=== PATIENT | male | born 1950 | race Caucasian/White ===

== ENCOUNTER 2018-06-07 08:59 | Outpatient (CLI) | payer MEDICARE, BC | END 2018-06-07 09:00 | disposition home or self-care (01) | LOC: BICULT 08:59 | PROVIDERS: ATTEND Internal Medicine Gastroenterology | DX: R74.8 Abnormal levels of other serum enzymes (principal); R19.7 Diarrhea, unspecified; Z86.010 Personal history of colon polyps | CPT/HCPCS: 76705 ==

== ENCOUNTER 2018-09-07 03:24 | Observation (INO) | payer MEDICARE, BC ==
[2018-09-07 04:01] LABS: #Basophils 0.1 thou/uL (0.0-0.2); #Eosinphils 0.4 thou/uL (0.0-0.7); #Lymphocytes 2.1 thou/uL (1.20-3.40); #Monocytes 0.5 thou/uL (0.11-0.59); #Neutrophils 2.9 thou/uL (1.40-6.50); %Basophils 1.7 % (0.0-1.0); %Lymphocytes 35.1 % (21.0-51.0); %Monocytes 8.8 % (0.0-10.0); %Neutrophils 48.4 % (42.0-75.0); Mean Corpuscular HGB CONC 33.2 g/dL (32.0-36.0); Mean Corpuscular Hemoglobin 31.4 pg (27.0-31.0); Mean Corpuscular Volume 94.5 fL (78.0-98.0); Mean Platelet Volume 7.4 fL (7.4-10.4); Platelet Count 263 thou/uL (130-400); RBC Distribution Width 11.9 % (11.5-14.5); Red Blood Cell (RBC) Count 4.46 mill/uL (4.70-6.10)
[2018-09-07 04:24] LABS: ALT (SGPT) 57 U/L (8-55); AST (SGOT) 28 U/L (5-34); Albumin 4.2 g/dL (3.4-4.8); Alkaline Phosphatase 87 U/L (40-150); Anion Gap 11 mmol/L (10-20); BUN (Urea Nitrogen) 24 mg/dL (8.4-25.7); Bilirubin, Total 0.5 mg/dL (0.2-1.2); CK (CPK) 27 U/L (30-200); Calc. Creatinine Clearance 0 mL/min (70-130); Carbon Dioxide 25 mmol/L (23-31); Chloride 106 mmol/L (98-107); Estimated GFR-MDRD Greater than 90; Globulin 2.5 g/dL (2.4-3.5); Glucose 112 mg/dL (80-115); Lipase 18 U/L (8-78); Potassium 3.6 mmol/L (3.5-5.1); Protein, Total 6.7 g/dL (5.8-8.1); Sodium 138 mmol/L (136-145)
[2018-09-07 04:27] LABS: CKMB 0.3 ng/mL (0-6.6); Troponin I Less than 0.010 ng/mL (< 0.028)
[2018-09-07 06:38] VITALS: BMI 24.0
[2018-09-07] MEDS ORDERED: Ondansetron ODT 4 MG TAB SL PRN (06:40)
[2018-09-07] MEDS ORDERED: Ondansetron PF 4 MG/2 ML Vial IVP PRN (06:40)
[2018-09-07] MEDS ORDERED: Acetaminophen 325 MG TAB PO PRN (06:40)
[2018-09-07 07:34] LABS: Troponin I Less than 0.010 ng/mL (< 0.028)
--- NOTE | 2018-09-07 07:59 | CT ---
PRELIMINARY REPORT/[facility]/EMERGENTY AFTER-HOURS PROCEDURE CT Angiography Chest With Intravenous Contrast EXAM DATE/TIME: 09/07/2018 4:32 AM CLINICAL HISTORY: 68 years old, male; Signs and symptoms; Other: Chest pain; Patient HX: [id number] presents to ed for chest p ain. PT reports recent left shoulder surgery and reports he has a blood clot in his left arm. PT repo rts some left arm discomfort earlier tonight and reports taking tylenol 3 with codeine. PT then repor ts chest pain with radiation to his back that woke him up from sleep around 1: 45 this morning. PT re ports receiving 2 nitro from ems and reports his pain has completely resolved. PT denies any lower ex tremity swelling or dyspnea on exertion. PT reports he is on Eliquis TECHNIQUE: Axial computed tomographic angiography images of the chest with intravenous contrast using CT angiogr aphy protocol. MIP reconstructed images were created and reviewed. COMPARISON: No relevant prior studies available. FINDINGS: Pulmonary arteries: See Great Vessels Off Aortic Arch Finding. Aorta: Normal. No aortic aneurysm. No aortic dissection. Great vessels off aortic arch: No dissection. No visualized embolism as characterized to the most pro ximal segmental level. Other arteries: The left vertebral artery originates off of the aortic arch. This is a normal variant . Lungs: apical fibrosis. No focal infiltrate. Pleural space: Normal. No pneumothorax. No pleural effusion. Heart: No pericardial effusion Bones/joints: The thoracic inlet is unremarkable. Soft tissues: Unremarkable. Lymph nodes: Nonspecific lymph nodes within the mediastinum Calcified lymph node right IMPRESSION: 1. No dissection. No visualized embolism as characterized to the most proximal segmental level. Consi jolene alternative form of imaging given the limitations of this exam. 2. apical fibrosis. No focal infiltrate. Thank you for allowing us to participate in the care of your patient. Dictated and Authenticated by: Cosme Myles MD 09/07/2018 5:17 AM Central Time ([place] & [place]) FINAL REPORT CT PULMONARY ANGIOGRAM WITH IV CONTRAST AND 3D POSTPROCESSING: I agree with the preliminary report given by Dr. Froylan Weller of [facility]. POS: [facility]
--- NOTE | 2018-09-07 08:02 | RAD ---
CHEST 1 VIEW: Date: 09/07/18 HISTORY: Dyspnea. COMPARISON: 10/15/18. FINDINGS: Cardiac silhouette is magnified by projection. Pulmonary vasculature is unremarkable. Mediastinum is midline. No lobar consolidation or evidence of pneumothorax. plaster mixer leads overlie the chest. IMPRESSION: No active cardiopulmonary abnormalities are demonstrated. POS: [facility]
[2018-09-07] MEDS ORDERED: traMADol HCl 50 MG TAB PO PRN (09:05)
[2018-09-07 10:41] LABS: Troponin I Less than 0.010 ng/mL (< 0.028)
--- NOTE | 2018-09-07 13:33 | HP ---
DATE OF ADMISSION: 09/07/2018 PRIMARY CARE PHYSICIAN: Dr. Fabby Pandya CHIEF COMPLAINT: Chest pain. HISTORY OF PRESENT ILLNESS: Mr. Lockett is a pleasant 68-year-old male with a past medical history of recent left shoulder rotator cuff repair back in June, newly diagnosed left upper extremity blo od clot on Eliqu, hyperlipidemia, hypertension and essential tremor. He had presented to [facility] via EMS early this morning due to symptoms of chest pain, he was given 2 nitro fr om EMS and his symptoms of chest pain resolved. He had denied any symptoms of shortness of breath, n ausea, vomiting, headache, blurred vision or dizziness. He states symptoms came on suddenly late las t night. He also has some pain down the left arm and left shoulder that he states has been on and of f since his surgery. For his pain, he usually takes Tylenol #3 with codeine. He had been undergoing physical therapy from recent shoulder surgery; however, he has stopped since diagnosis of blood clot this week on Tuesday. He states he was discharged on Eliquis yesterday prior to the symptoms develo ping. He denies any nausea, vomiting, lower extremity swelling or edema. He was admitted to the [facility] or on telemetry under observation status, he was seen and examined with family and denied any complai nts at this time, he has no further symptoms of chest pain, chest tightness, palpitations, shortness of breath or abdominal pain. He has complaints of left shoulder pain radiating down left arm. Denie s any weakness. PAST MEDICAL HISTORY: Left upper extremity DVT, hypertension, hyperlipidemia, essential tremor. PAST SURGICAL HISTORY: Hernia repair over 40 years ago, recent left shoulder rotator cuff repair on 07/05/2018. PSYCHIATRIC HISTORY: Denies any psychiatric history. SOCIAL HISTORY: Denies any alcohol, drug or smoking. ALLERGIES: No known drug allergies. CURRENT HOME MEDICATIONS: 1. Eliquis 10 mg p.o. b.i.d. 2. Propranolol 80 mg p.o. daily. 3. Pravastatin 20 mg p.o. at bedtime. 4. Tramadol HCL 50 mg p.o. q.i.d. p.r.n. pain. 5. Primidone 250 mg p.o. b.i.d. 6. Topiramate 100 mg p.o. b.i.d. 7. Acetaminophen/codeine 300 mg/30 mg p.o. q.6h. p.r.n. pain. REVIEW OF SYSTEMS: CONSTITUTIONAL: Denies any fever, chills, weight loss or weight gain. EYES: Denies any eye pain, eye discharge or vision changes. ENT: Denies any runny nose, bloody nose or sore throat. CARDIOVASCULAR: He did have some chest pain this morning that had radiated to his back; however, has since resolved. Denies any palpitations, edema, or dyspnea on exertion. RESPIRATORY: Denies any shortness of breath, cough or wheezing. GASTROINTESTINAL: Denies any abdominal pain, nausea, vomiting, constipation, or diarrhea. GENITOURINARY: Denies any dysuria or hematuria. MUSCULOSKELETAL: Denies any back pain, denies fall or injury. He does report some left shoulder payton n and left arm pain from recent surgery and DVT in left upper extremity, denies any weakness or swell ing. SKIN: Denies rash or lesion, does report surgical scars of the left shoulder and mild bruising from cupping from physical therapy. NEUROLOGIC: Denies any dizziness, lightheadedness, headache or weakness. PSYCHIATRIC: Denies any depression, anxiety, homicidal or suicidal ideation. PHYSICAL EXAMINATION: VITAL SIGNS: BP 106/54, pulse 56, respirations 20, temperature 97.4 degrees Fahrenheit, O2 saturatio n 96% on room air. GENERAL: The patient is alert and oriented x3. Mild acute distress noted due to left shoulder and l eft arm pain. HEAD: Atraumatic, normocephalic. EYES: Pupils equal, round, and reactive to light. Extraocular muscles intact. ENT: Hearing is intact to normal conversation. Nose is clear. No bleeding or discharge. Pharynx i s unremarkable. Uvula is midline, moist mucous membranes. NECK: Supple, nontender, no JVD, no bruit noted. CARDIAC: Regular rate and rhythm. Positive S1, S2. No murmurs or rubs. LUNGS: Clear to auscultation bilaterally, no wheezes, no rhonchi, no rales. ABDOMEN: Soft, nontender. Normal bowel sounds present. MUSCULOSKELETAL: Strength 5+ both upper and lower extremities bilaterally. Surgical scars noted rig ht shoulder. No edema. Sensation intact. Radial and pedal pulses 2+ bilaterally. NEUROLOGIC: Cranial nerves II-XII intact. Normal speech. No focal deficits noted. SKIN: As above, surgical scarring shoulder noted with mild bruising from recent cupping from [employer]. Skin is warm and dry, skin intact. PSYCHIATRIC: Normal mood and affect. LABORATORY DATA: WBC 6.0, RBC 4.46, hemoglobin 14.0, platelet 263, sodium 138, potassium 3.6, anion gap 11, BUN 24, creatinine 0.83, estimated GFR greater than 90, glucose 112, AST 28, ALT 57, alkaline phosphatase 87. Creatine kinase 27, CK-MB 0.3, troponin less than 0.010 x3. Lipase 18. DIAGNOSTIC IMAGING: Chest x-ray shows no acute cardiopulmonary abnormalities. Chest CTA showed no d issection, no PE noted, no focal infiltrate; however, did show some apical fibrosis. ASSESSMENT AND PLAN: 1. Chest pain, will rule out cardiac causes, serial troponins are unremarkable, less than 0.010 x3. We will check echocardiogram and stress test to rule out cardiac causes. A CT of chest negative for PE at this time. We will monitor the patient closely and continue on home medications including Mari osmar 10 mg p.o. twice daily, simvastatin, propranolol. 2. Deep venous thrombosis, left upper extremity, continue home dose of Eliquis and monitor closely. Continue pain management with home dose of tramadol and Tylenol with codeine. 3. History of rotator cuff repair, left shoulder, as above. Monitor the patient closely and continu e home medications. 4. GI prophylaxis with Pepcid 20 mg b.i.d. 5. Deep venous thrombosis prophylaxis, continue home Eliquis, patient tolerating well. No signs of active bleeding at this time. DISPOSITION: Disposition will be pending the patient's progress and workup for patient's chest pain, further adjustments made pending results.
[2018-09-07] MEDS: Acetaminophen/Codeine 30-300mg Tablet PO PRN ×2 (13:42→20:47)
[2018-09-07] MEDS ORDERED: ADENOSINE 60 MG/20 ML VIAL ONE (13:50)
[2018-09-07] MEDS ORDERED: ISOVUE-370 76%-LOCM 1 ML ONE (13:55)
--- NOTE | 2018-09-07 14:59 | NM ---
CARDIAC SPECT: CLINICAL HISTORY: 68-year-old male with chest pain and dyslipidemia. TECHNIQUE: A myocardial perfusion scan was performed using the single isotope one day protocol with technetium-9 9m sestamibi. 9 mCi were injected intravenously for the rest exam followed by 32 mCi for the stress e xam. Pharmacologic stress with Adenosine was monitored and interpreted by Dr. Rodriguez. FINDINGS: Homogeneous tracer distribution is seen in the myocardial segments on stress and rest images without fixed or reversible defects. GATED SPECT LVEF: 72%. WALL MOTION EXAM: Normal. IMPRESSION: Normal myocardial perfusion scan. POS: [facility]
[2018-09-07] MEDS: Apixaban 5 MG TAB PO SCH (20:45)
[2018-09-07] MEDS: Famotidine 20 MG TAB PO SCH (20:46)
[2018-09-07] MEDS: Primidone 250 MG TAB PO SCH (20:46)
[2018-09-07] MEDS: Topiramate 100 MG TAB PO SCH (20:47)
[2018-09-07] MEDS ORDERED: Simvastatin 5 MG TAB PO SCH (21:00)
[2018-09-08 06:17] LABS: Anion Gap 12 mmol/L (10-20); BUN (Urea Nitrogen) 13 mg/dL (8.4-25.7); Calc. Creatinine Clearance 116 mL/min (70-130); Carbon Dioxide 23 mmol/L (23-31); Chloride 107 mmol/L (98-107); Estimated GFR-MDRD Greater than 90; Potassium 3.8 mmol/L (3.5-5.1); Sodium 138 mmol/L (136-145)
[2018-09-08 06:18] LABS: Calcium 8.9 mg/dL (7.8-10.44); Glucose 89 mg/dL (80-115)
[2018-09-08 06:19] LABS: #Basophils 0.1 thou/uL (0.0-0.2); #Eosinphils 0.3 thou/uL (0.0-0.7); #Lymphocytes 1.7 thou/uL (1.20-3.40); #Monocytes 0.4 thou/uL (0.11-0.59); #Neutrophils 1.6 thou/uL (1.40-6.50); %Basophils 1.9 % (0.0-1.0); %Lymphocytes 41.2 % (21.0-51.0); %Monocytes 10.2 % (0.0-10.0); %Neutrophils 38.6 % (42.0-75.0); Hemoglobin 13.7 g/dL (14.0-18.0); Mean Corpuscular Hemoglobin 31.3 pg (27.0-31.0); Mean Platelet Volume 7.3 fL (7.4-10.4); Platelet Count 242 thou/uL (130-400); RBC Distribution Width 12.1 % (11.5-14.5); Red Blood Cell (RBC) Count 4.36 mill/uL (4.70-6.10); White Blood Cell (WBC) Count 4.2 thou/uL (4.8-10.8)
[2018-09-08] MEDS: Famotidine 20 MG TAB PO SCH (08:38)
[2018-09-08] MEDS: Apixaban 5 MG TAB PO SCH (08:38)
[2018-09-08] MEDS: Topiramate 100 MG TAB PO SCH (08:39)
[2018-09-08] MEDS: Primidone 250 MG TAB PO SCH (08:39)
[2018-09-08] MEDS: Acetaminophen/Codeine 30-300mg Tablet PO PRN (08:40)
[2018-09-08] MEDS ORDERED: Propranolol HCl LA 80 MG CAP PO SCH (09:00)
[2018-09-08 11:35] VITALS: BP 123/57; TEMP 99
--- NOTE | 2018-09-09 01:56 | DIS ---
DATE OF ADMISSION: 09/07/2018 DATE OF DISCHARGE: 09/08/2018 DISCHARGE DIAGNOSES: 1. Chest pain, noncardiac. 2. Deep venous thrombosis, left upper extremity, stable. 3. History of rotator cuff repair, left shoulder, stable. 4. Hypertension, stable. PERTINENT LABORATORY AND DIAGNOSTIC FINDINGS: WBC 4.2, RBC 4.36, hemoglobin 13.7, and platelet count 242. Sodium 138, potassium 3.8, creatinine 0.69, GFR greater than 90, glucose 89, creatine kinase 2 7, CK-MB 0.3, troponin less than 0.010 x3. Lipase 18. Chest x-ray showed no acute cardiopulmonary abnormalities. CTA of chest showed no dissection or PE, however, did show some apical fibrosis, no focal infiltrate noted. PROCEDURES: Echocardiogram showed left ventricular ejection fraction of 60% to 69% with grade I samuel tolic dysfunction. Nuclear medicine cardiac stress test revealed no wall motion abnormalities, sedrick l myocardial perfusion scan. CONSULTATIONS: None. HOSPITAL COURSE: Mr. Lockett is a pleasant 68-year-old male who had presented to [facility] with some complaints of left-sided chest pain, he had recently undergone left shoulder surgery for rotator cuff repair back in June, he was newly diagnosed with left upper extremity D VT and was started on Eliquis the day prior to symptoms starting. His workup in ER included serial t roponins, which were found to be negative, less than 0.010. He had undergone a chest x-ray, which wa s unremarkable and CTA of chest ruled out PE. He was admitted overnight for close monitoring and obs ervation. Stress test and echocardiogram were ordered. The echocardiogram displayed a left ventricu lar ejection fraction of 60%-69% with grade I diastolic dysfunction, cardiac stress test revealed nor mal myocardial perfusion scan. He was seen and examined with several family members at bedside, he h ad no further complaints of chest pain, shortness of breath, or abdominal pain. Serial troponins wer e found to be negative 0.010 x3 and he had no further episodes of chest pain, palpitations, or shortn ess of breath throughout the hospital course. He was instructed to continue his current home medicat ions. His vital signs remained stable during hospital course. He was instructed to continue Eliquis for at least 3 months and that he would need to repeat Doppler as outpatient. He was instructed to follow up with his Orthopedic surgeon and PCP as directed. His symptoms of chest pain were likely no ncardiac and possibly referred pain from his left shoulder. He was deemed medically stable for disch arge home on 09/08/2018. He was only provided with 14 days of Eliquis from his Orthopedic Surgeon, h e was provided with 30-day supply of prescription, he was also provided with an Eliquis coupon to be used prior to discharge. DISCHARGE MEDICATIONS: 1. Eliquis 10 mg oral twice daily for 5 days, then 5 mg twice daily thereafter. 2. Propranolol 80 mg oral daily. 3. Pravastatin 20 mg oral at bedtime. 4. Tramadol 50 mg oral 4 times daily as needed for pain. 5. Primidone 250 mg oral twice daily. 6. Topiramate 100 mg oral twice daily. 7. Acetaminophen with codeine 1 tablet oral every 6 hours as needed for pain. FOLLOWUP: The patient was instructed to follow up with his primary care physician, Dr. Fabby montero 1-2 weeks, he was also instructed to follow up with his Orthopedic Surgeon as directed. CONDITION ON DISCHARGE: Stable. ACTIVITY: As tolerated. DIET: Heart healthy. DISPOSITION: Home on 09/08/2018.
--- NOTE | 2018-09-14 15:39 | EKG ---
Test Reason : Blood Pressure : / mmHG Vent. Rate : 067 BPM Atrial Rate : 067 BPM P-R Int : 148 ms QRS Dur : 080 ms QT Int : 384 ms P-R-T Axes : 052 077 034 degrees QTc Int : 405 ms Normal sinus rhythm Normal ECG Confirmed by EDUARDO GENAO D.O. ([id number]), medical transcription editor HELEN VARGAS ([id number]) on 09/14/2018 3:38:54 PM Referred By: Confirmed By:EDUARDO GENAO D.O.
== END 2018-09-08 12:33 | disposition home or self-care (01) ==
LOC: ERS 03:24 → 2SW 05:58
PROVIDERS: ADMIT Internal Medicine; ATTEND Internal Medicine
DX: R07.89 Other chest pain (principal); I10 Essential (primary) hypertension; E78.5 Hyperlipidemia, unspecified; Z98.890 Other specified postprocedural states; Z79.899 Other long term (current) drug therapy; Z79.01 Long term (current) use of anticoagulants
CPT/HCPCS: 71045; 71275; 78452; 80048; 80053; 82550; 82553; 83690; 84484 ×2; 85025 ×2; 90662; 93005; 93017; 93306; 99285; A9500; G0008; G0378 ×2; 36415; 90471; J0153

== ENCOUNTER 2019-02-03 23:59 | Emergency (ER) | payer MEDICARE ==
[2019-02-04 02:21] LABS: #Basophils 0.1 thou/uL (0.0-0.2); #Eosinphils 0.6 thou/uL (0.0-0.7); #Lymphocytes 2.6 thou/uL (1.20-3.40); #Monocytes 0.6 thou/uL (0.11-0.59); #Neutrophils 2.5 thou/uL (1.40-6.50); %Basophils 1.8 % (0.0-1.0); %Eosinophils 9.8 % (0.0-10.0); %Lymphocytes 40.9 % (21.0-51.0); %Monocytes 8.8 % (0.0-10.0); %Neutrophils 38.6 % (42.0-75.0); Hemoglobin 14.6 g/dL (14.0-18.0); Mean Corpuscular HGB CONC 33.1 g/dL (32.0-36.0); Mean Corpuscular Hemoglobin 31.9 pg (27.0-31.0); Mean Corpuscular Volume 96.3 fL (78.0-98.0); Mean Platelet Volume 7.6 fL (7.4-10.4); Platelet Count 256 thou/uL (130-400); RBC Distribution Width 12.4 % (11.5-14.5); Red Blood Cell (RBC) Count 4.58 mill/uL (4.70-6.10); White Blood Cell (WBC) Count 6.4 thou/uL (4.8-10.8)
[2019-02-04 02:27] LABS: PTT 30.1 SEC (22.9-36.1); Prothrombin Time 13.6 SEC (12.0-14.7)
[2019-02-04 02:41] LABS: ALT (SGPT) 95 U/L (8-55); AST (SGOT) 52 U/L (5-34); Albumin 4.3 g/dL (3.4-4.8); Alkaline Phosphatase 120 U/L (40-150); Anion Gap 12 mmol/L (10-20); BUN (Urea Nitrogen) 11 mg/dL (8.4-25.7); Bilirubin, Total 0.3 mg/dL (0.2-1.2); Calc. Creatinine Clearance 0 mL/min (70-130); Calcium 9.2 mg/dL (7.8-10.44); Carbon Dioxide 24 mmol/L (23-31); Chloride 108 mmol/L (98-107); Estimated GFR-MDRD Greater than 90; Globulin 2.6 g/dL (2.4-3.5); Glucose 89 mg/dL (80-115); Potassium 3.9 mmol/L (3.5-5.1); Protein, Total 6.9 g/dL (5.8-8.1); Sodium 140 mmol/L (136-145)
--- NOTE | 2019-02-04 08:23 | CT ---
PRELIMINARY REPORT/[facility]/EMERGENCY AFTER HOURS PROCEDURE: EXAM: CT Head Without Contrast EXAM DATE/TIME: 02/04/2019 2:24 AM CLINICAL HISTORY: 68 years old, male; Injury or trauma; Fall; Initial encounter; Blunt trauma (contusions or hematomas) ; Patient HX: PT lost his balance and fell. Does not remember hitting his head. Now having elbow and shoulder pain. TECHNIQUE: Imaging protocol: Axial computed tomography images of the head/brain without contrast. COMPARISON: No relevant prior studies available. FINDINGS: Brain: There is no evidence of intracranial hemorrhage. There are scattered foci of hypoattenuation within the periventricular and subcortical white matter compatible with mild chronic microvascular is chemic change. Ventricles: Normal. No ventriculomegaly. Bones/joints: Unremarkable. No acute fracture. Sinuses: Visualized sinuses are unremarkable. No acute sinusitis. Mastoid air cells: Visualized mastoid air cells are unremarkable. No mastoid effusion. Soft tissues: Unremarkable. IMPRESSION: No acute intracranial hemorrhage. Thank you for allowing us to participate in the care of your patient. Dictated and Authenticated by: Nehemiah Rios MD 02/04/2019 3:27 AM Central Time ([place] & [place]) FINAL REPORT CT BRAIN WITHOUT CONTRAST: Date: 02/04/19 INDICATION: History of fall. COMPARISON: None. IMPRESSION: I agree with the preliminary report provided by [facility]. No acute abnormality is demonstrated. POS: JOSE EDUARDO
--- NOTE | 2019-02-04 09:31 | RAD ---
LEFT ELBOW 4 VIEWS: Date: 02/04/19 INDICATION: Fall with left arm pain. COMPARISON: None. IMPRESSION: No acute fracture or subluxation is evident. No joint capsular distention is noted. Radiocapitellar a lignment is within normal limits. POS: [facility]
--- NOTE | 2019-02-04 09:32 | RAD ---
LEFT SHOULDER 3 VIEWS: Date: 02/04/19 INDICATION: Fall with left shoulder pain. COMPARISON: None. FINDINGS/IMPRESSION: There is postsurgical change of the left rotator cuff repair. 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 No acute fracture or subluxation is evident. Visualized left lung is clear. POS: [facility]
== END 2019-02-04 04:00 | disposition home or self-care (01) ==
LOC: ERS 23:59
DX: M25.512 Pain in left shoulder (principal); M25.522 Pain in left elbow; M25.562 Pain in left knee; E78.5 Hyperlipidemia, unspecified; W18.30XA Fall on same level, unspecified, initial encounter; Z79.899 Other long term (current) drug therapy
CPT/HCPCS: 36415; 70450; 80053; 85025; 85610; 85730

== ENCOUNTER 2023-06-14 17:58 | Inpatient (IN) | payer MEDICARE ==
[2023-06-14 18:36] LABS: #Basophils 0.1 thou/uL (0.0-0.2); #Eosinphils 0.1 thou/uL (0.0-0.7); #Monocytes 0.8 thou/uL (0.11-0.59); #Neutrophils 8.9 thou/uL (1.40-6.50); %Basophils 0.7 % (0.0-1.0); %Eosinophils 1.1 % (0.0-10.0); %Lymphocytes 8.2 % (21.0-51.0); %Monocytes 7.6 % (0.0-10.0); %Neutrophils 81.9 % (42.0-75.0); Hematocrit 38.9 % (42.0-52.0); Hemoglobin 13.6 g/dL (14.0-18.0); Mean Corpuscular Hemoglobin 34.8 pg (27.0-31.0); Mean Corpuscular Volume 99.5 fl (78.0-98.0); Mean Platelet Volume 11.1 fL (7.4-10.4); Platelet Count 149 10x3/uL (130-400); RBC Distribution Width 19.9 % (11.5-14.5); Red Blood Cell (RBC) Count 3.91 mill/uL (4.70-6.10); White Blood Cell (WBC) Count 10.9 10x3/uL (4.8-10.8)
[2023-06-14 19:05] LABS: Bacteria/HPF 3+ HPF (None Seen); Bilirubin 1+ (Negative); Blood, Urine 3+ (Negative); CAUTI Indications for Culture Alt mental st,lethar; Clarity Turbid (Clear); Glucose, Urine (Dipstick) Normal (Negative); Ketone, Urine Negative (Negative); Leukocyte 500 Leu/uL (Negative); Nitrite Negative (Negative); Protein, Urine (Dipstick) 50 mg/dL (Neg-Trace); Specific Gravity, Urine 1.018 (1.002-1.036); Squamous Epithelial None Seen HPF (0-3)
[2023-06-14 19:07] LABS: Troponin I 0.015 ng/mL (< 0.028)
[2023-06-14 19:08] LABS: Urine Culture Reflex No No
[2023-06-14 19:38] LABS: AST (SGOT) 121 U/L (5-34); Albumin 2.7 g/dL (3.4-4.8); Anion Gap 15 mmol/L (10-20); Bilirubin, Total 6.5 mg/dL (0.2-1.2); Calc. Creatinine Clearance 0 mL/min (70-130); Calcium 8.5 mg/dL (7.8-10.44); Carbon Dioxide 18 mmol/L (23-31); Chloride 100 mmol/L (98-107); Estimated GFR 39; Globulin 4.4 g/dL (2.4-3.5); Potassium 4.4 mmol/L (3.5-5.1); Protein, Total 7.1 g/dL (5.8-8.1); Sodium 129 mmol/L (136-145)
[2023-06-14] MEDS ORDERED: cefTRIAXone (ROCEPHIN) 2 GM VIAL ONE (19:43)
[2023-06-14 19:54] LABS: Glucose 94 mg/dL (83-110)
[2023-06-14 19:57] LABS: Alkaline Phosphatase 114 U/L (40-110)
[2023-06-14 19:58] LABS: BUN (Urea Nitrogen) 47 mg/dL (8.4-25.7)
[2023-06-14 20:00] LABS: ALT (SGPT) 121 U/L (8-55)
[2023-06-14] MEDS ORDERED: Acetaminophen 325 MG TAB PO PRN (21:42)
[2023-06-14] MEDS ORDERED: Acetaminophen 650 MG Suppository PR PRN (21:42)
[2023-06-14] MEDS ORDERED: Ondansetron ODT 4 MG TAB PO PRN (21:42)
[2023-06-14] MEDS ORDERED: Ondansetron PF 4 MG/2 ML Vial IVP PRN (21:42)
[2023-06-14] MEDS ORDERED: D5 1/2 NS w/20 mEq KCL 1,000 ML IV SCH (22:00)
[2023-06-15 00:16] LABS: Lactic Acid 2.8 mmol/L (0.5-2.2)
[2023-06-15] MEDS ORDERED: Piperacillin/Tazobactam 3.375 GM in Sodium Chloride 0.9% 100 ML IVPB SCH (02:00)
[2023-06-15] MEDS: Piperacillin/Tazobactam 3.375 GM in Sodium Chloride 0.9% 100 ML IVPB SCH ×3 (05:08→22:23)
[2023-06-15] MEDS ORDERED: Furosemide 40 MG TAB PO SCH (07:30)
[2023-06-15] MEDS ORDERED: Spironolactone 25 MG TAB PO SCH (08:00)
[2023-06-15 08:20] VITALS: BMI 28.8
[2023-06-15] MEDS: Famotidine 20 MG TAB PO SCH (10:42)
[2023-06-15] MEDS: Famotidine/PF 20 mg/2ml Vial SLOW IVP SCH (10:42)
[2023-06-15] MEDS: Primidone 250 MG TAB PO SCH ×2 (10:43→22:26)
[2023-06-15] MEDS: Topiramate 100 MG TAB PO SCH ×2 (10:43→22:26)
[2023-06-15] MEDS ORDERED: Albumin 25% 25 GM/100 ML BOT IVPB SCH (14:00)
[2023-06-15 14:18] LABS: #Basophils 0.1 thou/uL (0.0-0.2); #Eosinphils 0.2 thou/uL (0.0-0.7); #Monocytes 0.9 thou/uL (0.11-0.59); #Neutrophils 7.9 thou/uL (1.40-6.50); %Basophils 1.1 % (0.0-1.0); %Eosinophils 1.9 % (0.0-10.0); %Lymphocytes 9.4 % (21.0-51.0); %Monocytes 9.3 % (0.0-10.0); %Neutrophils 77.8 % (42.0-75.0); Hematocrit 36.2 % (42.0-52.0); Hemoglobin 12.9 g/dL (14.0-18.0); Mean Corpuscular HGB CONC 35.6 g/dL (32.0-36.0); Mean Corpuscular Hemoglobin 34.5 pg (27.0-31.0); Mean Corpuscular Volume 96.8 fl (78.0-98.0); Mean Platelet Volume 11.4 fL (7.4-10.4); Platelet Count 159 10x3/uL (130-400); RBC Distribution Width 19.5 % (11.5-14.5); Red Blood Cell (RBC) Count 3.74 mill/uL (4.70-6.10); White Blood Cell (WBC) Count 10.2 10x3/uL (4.8-10.8)
[2023-06-15 14:40] LABS: Lactic Acid 2.3 mmol/L (0.5-2.2)
[2023-06-15 14:49] LABS: ALT (SGPT) 118 U/L (8-55); AST (SGOT) 113 U/L (5-34); Albumin 2.6 g/dL (3.4-4.8); Alkaline Phosphatase 105 U/L (40-110); Anion Gap 15 mmol/L (10-20); BUN (Urea Nitrogen) 49 mg/dL (8.4-25.7); Bilirubin, Total 6.5 mg/dL (0.2-1.2); Calc. Creatinine Clearance 45 mL/min (70-130); Calcium 8.3 mg/dL (7.8-10.44); Carbon Dioxide 18 mmol/L (23-31); Chloride 102 mmol/L (98-107); Estimated GFR 34; Globulin 4.2 g/dL (2.4-3.5); Glucose 125 mg/dL (83-110); Potassium 4.2 mmol/L (3.5-5.1); Protein, Total 6.8 g/dL (5.8-8.1); Sodium 131 mmol/L (136-145)
[2023-06-15] MEDS ORDERED: Sodium Bicarbonate 150 MEQ in Dextrose 5% in Water 1,000 ML IV SCH (15:00)
[2023-06-15] MEDS: Lactulose 10 GM/15 ML Oral Solution PR SCH ×2 (15:06→22:32)
[2023-06-15 16:51] LABS: Protein, Urine Random Quant 57 mg/dL (1-14); Sodium, Urine Less than 20 mmol/L (Not Available)
[2023-06-15] MEDS: Albumin 25% 25 GM/100 ML BOT IVPB SCH (20:07)
[2023-06-15] MEDS: Simvastatin 10 MG TAB PO SCH (22:26)
[2023-06-16] MEDS: Albumin 25% 25 GM/100 ML BOT IVPB SCH ×3 (01:05→12:14)
[2023-06-16 04:16] LABS: INR-International Normal Ratio 2.3; Prothrombin Time 26.2 sec (12.0-14.7)
[2023-06-16 04:32] LABS: Iron 84 ug/dL (65-175); Iron Binding Capacity, Total 63 mcg/dL (261-462)
[2023-06-16] MEDS: Piperacillin/Tazobactam 3.375 GM in Sodium Chloride 0.9% 100 ML IVPB SCH ×3 (05:46→21:40)
[2023-06-16 07:52] LABS: ALT (SGPT) 89 U/L (8-55); AST (SGOT) 88 U/L (5-34); Albumin 3.5 g/dL (3.4-4.8); Alkaline Phosphatase 81 U/L (40-110); Anion Gap 15 mmol/L (10-20); BUN (Urea Nitrogen) 50 mg/dL (8.4-25.7); Bilirubin, Total 6.5 mg/dL (0.2-1.2); Calc. Creatinine Clearance 44 mL/min (70-130); Calcium 8.5 mg/dL (7.8-10.44); Carbon Dioxide 21 mmol/L (23-31); Chloride 101 mmol/L (98-107); Estimated GFR 34; Globulin 3.2 g/dL (2.4-3.5); Glucose 90 mg/dL (83-110); Potassium 3.7 mmol/L (3.5-5.1); Protein, Total 6.7 g/dL (5.8-8.1); Sodium 133 mmol/L (136-145)
[2023-06-16 07:54] LABS: Ferritin 1669.03 ng/mL (22-322); Hep B Core Total Ab Non-Reactive (NonReactive); Hep B Core Total Index 0.15 S/CO (0-0.79)
[2023-06-16 07:55] LABS: Hep C IgG Ab Non-Reactive S/CO (NonReactive); Hep C Index 0.11 S/CO (0-0.79)
[2023-06-16 07:56] LABS: HBCM Index 0.38 S/CO (0-0.79); Hepatitis B Core IgM Abs Non-Reactive S/CO (NonReactive)
[2023-06-16 08:48] LABS: HBSAg Index 0.36 S/CO (0-0.99); Hep B Surf Ag Non-Reactive S/CO (NonReactive)
[2023-06-16] MEDS: Famotidine 20 MG TAB PO SCH (09:29)
[2023-06-16] MEDS: Famotidine/PF 20 mg/2ml Vial SLOW IVP SCH (09:30)
[2023-06-16] MEDS: Primidone 250 MG TAB PO SCH ×2 (09:30→21:39)
[2023-06-16] MEDS: Topiramate 100 MG TAB PO SCH ×2 (09:30→21:39)
[2023-06-16] MEDS ORDERED: Sodium Bicarbonate 150 MEQ in Dextrose 5% in Water 1,000 ML IV SCH (09:30)
[2023-06-16] MEDS ORDERED: Lidocaine 1% PF 5 ML VIAL ONE (10:06)
[2023-06-16] MEDS ORDERED: Sodium Bicarbonate 2.5 MEQ/5 ML VIAL ONE (10:06)
[2023-06-16 12:52] LABS: RBC Count-Automated (BF) 106 /cu.mm; WBC/Nucleated-Auto (BF) 149 /cu.mm
[2023-06-16 13:22] LABS: BF Color Yellow; Body Fluid Source Ascites Body Fluid; Clarity Clear (Clear); Tube # EDTA
[2023-06-16 13:24] LABS: BF Segmented Neutrophils 44 %; Cell Count Non Hematic 37 %; Lymphocytes 19 %
[2023-06-16] MEDS: Simvastatin 10 MG TAB PO SCH (21:39)
[2023-06-17 03:45] LABS: ALT (SGPT) 66 U/L (8-55); AST (SGOT) 66 U/L (5-34); Albumin 3.1 g/dL (3.4-4.8); Alkaline Phosphatase 72 U/L (40-110); Anion Gap 12 mmol/L (10-20); BUN (Urea Nitrogen) 40 mg/dL (8.4-25.7); Bilirubin, Total 6.1 mg/dL (0.2-1.2); Calc. Creatinine Clearance 53 mL/min (70-130); Calcium 8.3 mg/dL (7.8-10.44); Carbon Dioxide 23 mmol/L (23-31); Chloride 105 mmol/L (98-107); Estimated GFR 42; Globulin 2.8 g/dL (2.4-3.5); Glucose 105 mg/dL (83-110); Potassium 3.3 mmol/L (3.5-5.1); Protein, Total 5.9 g/dL (5.8-8.1); Sodium 137 mmol/L (136-145)
[2023-06-17] MEDS: Piperacillin/Tazobactam 3.375 GM in Sodium Chloride 0.9% 100 ML IVPB SCH ×3 (06:30→21:01)
[2023-06-17] MEDS: Famotidine 20 MG TAB PO SCH (07:33)
[2023-06-17] MEDS: Famotidine/PF 20 mg/2ml Vial SLOW IVP SCH (09:09)
[2023-06-17] MEDS: Topiramate 100 MG TAB PO SCH ×2 (09:09→20:58)
[2023-06-17] MEDS: Potassium Bicarbonate/Cit Ac 20 MEQ TAB PER TUBE SCH ×2 (09:09→14:45)
[2023-06-17] MEDS: Primidone 250 MG TAB PO SCH ×2 (09:09→21:01)
[2023-06-17] MEDS: Albumin 25% 25 GM/100 ML BOT IVPB SCH ×3 (09:09→17:55)
[2023-06-17 11:45] LABS: Phosphorus 3.4 mg/dL (2.3-4.7)
[2023-06-17] MEDS: Midodrine HCl 5 MG TAB PO SCH ×2 (14:45→20:55)
[2023-06-17] MEDS: Octreotide Acetate 100 MCG/ML VIAL SC SCH ×2 (14:46→20:58)
[2023-06-17] MEDS: Heparin 5,000 UNITS/ML VIAL SC SCH (20:55)
[2023-06-17] MEDS: Simvastatin 10 MG TAB PO SCH (20:55)
[2023-06-17] MEDS: Rifaximin 200 MG TAB PER TUBE SCH (20:55)
[2023-06-18] MEDS: Albumin 25% 25 GM/100 ML BOT IVPB SCH ×5 (00:05→23:59)
[2023-06-18] MEDS: Octreotide Acetate 100 MCG/ML VIAL SC SCH ×3 (05:34→21:13)
[2023-06-18] MEDS: Piperacillin/Tazobactam 3.375 GM in Sodium Chloride 0.9% 100 ML IVPB SCH ×3 (05:34→21:13)
[2023-06-18] MEDS: Midodrine HCl 5 MG TAB PO SCH ×3 (10:03→21:12)
[2023-06-18] MEDS: Topiramate 100 MG TAB PO SCH ×2 (10:03→21:13)
[2023-06-18] MEDS: Heparin 5,000 UNITS/ML VIAL SC SCH ×2 (10:04→21:13)
[2023-06-18] MEDS: Primidone 250 MG TAB PO SCH ×2 (10:04→21:12)
[2023-06-18] MEDS: Famotidine/PF 20 mg/2ml Vial SLOW IVP SCH (10:04)
[2023-06-18] MEDS: Famotidine 20 MG TAB PO SCH (10:05)
[2023-06-18] MEDS: Rifaximin 200 MG TAB PER TUBE SCH ×2 (10:15→21:12)
[2023-06-18 10:36] LABS: ALT (SGPT) 42 U/L (8-55); AST (SGOT) 46 U/L (5-34); Albumin 3.8 g/dL (3.4-4.8); Alkaline Phosphatase 52 U/L (40-110); Anion Gap 14 mmol/L (10-20); BUN (Urea Nitrogen) 27 mg/dL (8.4-25.7); Bilirubin, Total 6.2 mg/dL (0.2-1.2); Calc. Creatinine Clearance 75 mL/min (70-130); Calcium 8.8 mg/dL (7.8-10.44); Carbon Dioxide 20 mmol/L (23-31); Chloride 110 mmol/L (98-107); Estimated GFR 64; Globulin 2.3 g/dL (2.4-3.5); Glucose 119 mg/dL (83-110); Potassium 3.8 mmol/L (3.5-5.1); Protein, Total 6.1 g/dL (5.8-8.1); Sodium 140 mmol/L (136-145)
[2023-06-18] MEDS ORDERED: Albumin 25% 25 GM/100 ML BOT IVPB SCH (12:45)
[2023-06-18] MEDS: Sodium Bicarbonate Tab 325 MG TAB PER TUBE SCH ×2 (15:32→21:12)
[2023-06-18 19:33] LABS: ANA Symphony (Qualitative) POSITIVE (Negative); ANA Symphony (Quantitative) 2.2 Ratio (< 0.7 Negative); CENP IgG Antibody 1.3 EliAU/mL (<7 Negative); EliA Vaculitis New Method **** NEW METHOD ****; Jo-1 IgG Antibody 1.2 EliAU/mL (<7 Negative); Mitochondrial Ab 2.3 U/mL (<4 Negative); RNP70 IgG Antibody 1.9 EliAU/mL (<7 Negative); SSA/Ro IgG Antibody 1.2 EliAU/mL (<7 Negative); Scleroderma-70 IgG Antibody 1.7 EliAU/mL (<7 Negative); dsDNA IgG Antibody 4.5 IU/mL (<10 Negative)
[2023-06-18] MEDS: Simvastatin 10 MG TAB PO SCH (21:12)
[2023-06-19] MEDS: Albumin 25% 25 GM/100 ML BOT IVPB SCH ×3 (05:04→21:25)
[2023-06-19 05:07] LABS: Anion Gap 14 mmol/L (10-20); BUN (Urea Nitrogen) 21 mg/dL (8.4-25.7); Calc. Creatinine Clearance 68 mL/min (70-130); Carbon Dioxide 20 mmol/L (23-31); Chloride 110 mmol/L (98-107); Potassium 4.5 mmol/L (3.5-5.1); Sodium 139 mmol/L (136-145)
[2023-06-19 05:08] LABS: ALT (SGPT) 38 U/L (8-55); AST (SGOT) 68 U/L (5-34); Albumin 4.3 g/dL (3.4-4.8); Alkaline Phosphatase 50 U/L (40-110); Bilirubin, Total 4.6 mg/dL (0.2-1.2); Calcium 9.2 mg/dL (7.8-10.44); Estimated GFR 56; Globulin 2.6 g/dL (2.4-3.5); Glucose 98 mg/dL (83-110); Protein, Total 6.9 g/dL (5.8-8.1)
[2023-06-19] MEDS: Piperacillin/Tazobactam 3.375 GM in Sodium Chloride 0.9% 100 ML IVPB SCH ×3 (06:04→21:26)
[2023-06-19] MEDS: Octreotide Acetate 100 MCG/ML VIAL SC SCH ×3 (06:06→21:26)
[2023-06-19] MEDS ORDERED: Sodium Bicarbonate 150 MEQ in Dextrose 5% in Water 1,000 ML IV SCH (08:45)
[2023-06-19] MEDS: Famotidine/PF 20 mg/2ml Vial SLOW IVP SCH (10:03)
[2023-06-19] MEDS: Sodium Bicarbonate Tab 325 MG TAB PER TUBE SCH ×3 (10:04→21:25)
[2023-06-19] MEDS: Rifaximin 200 MG TAB PER TUBE SCH ×2 (10:05→21:25)
[2023-06-19] MEDS: Topiramate 100 MG TAB PO SCH ×2 (10:05→21:26)
[2023-06-19] MEDS: Primidone 250 MG TAB PO SCH ×2 (10:06→21:26)
[2023-06-19] MEDS: Heparin 5,000 UNITS/ML VIAL SC SCH ×2 (10:06→21:26)
[2023-06-19] MEDS: Midodrine HCl 5 MG TAB PO SCH ×3 (10:06→21:25)
[2023-06-19] MEDS: Famotidine 20 MG TAB PO SCH (10:07)
[2023-06-19] MEDS: Simvastatin 10 MG TAB PO SCH (21:25)
[2023-06-20 05:00] LABS: ALT (SGPT) 32 U/L (8-55); AST (SGOT) 44 U/L (5-34); Albumin 3.9 g/dL (3.4-4.8); Alkaline Phosphatase 52 U/L (40-110); Anion Gap 8 mmol/L (10-20); BUN (Urea Nitrogen) 17 mg/dL (8.4-25.7); Bilirubin, Total 3.8 mg/dL (0.2-1.2); Calc. Creatinine Clearance 100 mL/min (70-130); Calcium 8.8 mg/dL (7.8-10.44); Carbon Dioxide 25 mmol/L (23-31); Chloride 112 mmol/L (98-107); Estimated GFR 89; Globulin 1.9 g/dL (2.4-3.5); Glucose 132 mg/dL (83-110); Potassium 3.3 mmol/L (3.5-5.1); Protein, Total 5.8 g/dL (5.8-8.1); Sodium 142 mmol/L (136-145)
[2023-06-20] MEDS: Piperacillin/Tazobactam 3.375 GM in Sodium Chloride 0.9% 100 ML IVPB SCH ×3 (05:29→22:38)
[2023-06-20] MEDS: Octreotide Acetate 100 MCG/ML VIAL SC SCH ×3 (05:31→22:18)
[2023-06-20] MEDS: Albumin 25% 25 GM/100 ML BOT IVPB SCH ×3 (05:31→22:42)
[2023-06-20] MEDS: Topiramate 100 MG TAB PO SCH ×2 (09:28→22:18)
[2023-06-20] MEDS: Midodrine HCl 5 MG TAB PO SCH ×3 (09:28→22:18)
[2023-06-20] MEDS: Rifaximin 200 MG TAB PER TUBE SCH ×2 (09:28→22:17)
[2023-06-20] MEDS: Primidone 250 MG TAB PO SCH ×2 (09:28→22:18)
[2023-06-20] MEDS: Famotidine/PF 20 mg/2ml Vial SLOW IVP SCH (09:29)
[2023-06-20] MEDS: Sodium Bicarbonate Tab 325 MG TAB PER TUBE SCH ×3 (09:29→22:18)
[2023-06-20] MEDS: Heparin 5,000 UNITS/ML VIAL SC SCH ×2 (09:29→22:20)
[2023-06-20] MEDS: Famotidine 20 MG TAB PO SCH (09:29)
[2023-06-20] MEDS ORDERED: Lidocaine 1% PF 5 ML VIAL ONE (09:52)
[2023-06-20] MEDS ORDERED: Sodium Bicarbonate 2.5 MEQ/5 ML VIAL ONE (09:52)
[2023-06-20] MEDS ORDERED: Potassium Bicarbonate/Cit Ac 20 MEQ TAB PER TUBE SCH (12:30)
[2023-06-20] MEDS ORDERED: predniSONE 20 MG TAB PO SCH (16:15)
[2023-06-20] MEDS: Simvastatin 10 MG TAB PO SCH (22:18)
[2023-06-21 02:59] LABS: #Eosinphils 0.1 thou/uL (0.0-0.7); #Monocytes 0.2 thou/uL (0.11-0.59); #Neutrophils 2.1 thou/uL (1.40-6.50); %Basophils 1.3 % (0.0-1.0); %Eosinophils 4.1 % (0.0-10.0); %Lymphocytes 20.4 % (21.0-51.0); %Monocytes 7.5 % (0.0-10.0); %Neutrophils 66.1 % (42.0-75.0); Hematocrit 31.9 % (42.0-52.0); Hemoglobin 10.3 g/dL (14.0-18.0); Mean Corpuscular HGB CONC 32.3 g/dL (32.0-36.0); Mean Corpuscular Hemoglobin 34.1 pg (27.0-31.0); Mean Corpuscular Volume 105.6 fl (78.0-98.0); Mean Platelet Volume 10.3 fL (7.4-10.4); Red Blood Cell (RBC) Count 3.02 mill/uL (4.70-6.10); White Blood Cell (WBC) Count 3.2 10x3/uL (4.8-10.8)
[2023-06-21 03:14] LABS: Lactic Acid 1.7 mmol/L (0.5-2.2)
[2023-06-21 03:20] LABS: ALT (SGPT) 28 U/L (8-55); AST (SGOT) 35 U/L (5-34); Alkaline Phosphatase 51 U/L (40-110); Anion Gap 10 mmol/L (10-20); BUN (Urea Nitrogen) 16 mg/dL (8.4-25.7); Bilirubin, Total 3.1 mg/dL (0.2-1.2); Calc. Creatinine Clearance 90 mL/min (70-130); Calcium 8.8 mg/dL (7.8-10.44); Carbon Dioxide 26 mmol/L (23-31); Chloride 110 mmol/L (98-107); Estimated GFR 78; Globulin 1.8 g/dL (2.4-3.5); Glucose 170 mg/dL (83-110); Protein, Total 5.8 g/dL (5.8-8.1); Sodium 142 mmol/L (136-145)
[2023-06-21 03:23] LABS: Platelet Count 87 10x3/uL (130-400)
[2023-06-21] MEDS: Albumin 25% 25 GM/100 ML BOT IVPB SCH ×2 (06:13→14:25)
[2023-06-21] MEDS: Piperacillin/Tazobactam 3.375 GM in Sodium Chloride 0.9% 100 ML IVPB SCH ×3 (06:13→22:15)
[2023-06-21] MEDS: Octreotide Acetate 100 MCG/ML VIAL SC SCH ×3 (07:12→22:14)
[2023-06-21] MEDS: Famotidine 20 MG TAB PO SCH ×2 (08:58→22:16)
[2023-06-21] MEDS: Heparin 5,000 UNITS/ML VIAL SC SCH ×2 (08:58→22:16)
[2023-06-21] MEDS: Primidone 250 MG TAB PO SCH ×2 (09:01→22:15)
[2023-06-21] MEDS: Rifaximin 200 MG TAB PER TUBE SCH ×2 (09:01→22:15)
[2023-06-21] MEDS: Midodrine HCl 5 MG TAB PO SCH ×3 (09:01→22:14)
[2023-06-21] MEDS: Sodium Bicarbonate Tab 325 MG TAB PER TUBE SCH ×3 (09:01→22:14)
[2023-06-21] MEDS: Topiramate 100 MG TAB PO SCH ×2 (09:01→22:15)
[2023-06-21] MEDS: Famotidine/PF 20 mg/2ml Vial SLOW IVP SCH ×2 (09:02→22:15)
[2023-06-21] MEDS: predniSONE 20 MG TAB PO SCH (09:02)
[2023-06-21] MEDS ORDERED: Spironolactone 25 MG TAB PO SCH (13:30)
[2023-06-21] MEDS: Simvastatin 10 MG TAB PO SCH (22:15)
[2023-06-22 04:30] LABS: #Basophils 0.1 thou/uL (0.0-0.2); #Eosinphils 0.5 thou/uL (0.0-0.7); #Monocytes 0.9 thou/uL (0.11-0.59); #Neutrophils 3.7 thou/uL (1.40-6.50); %Basophils 0.8 % (0.0-1.0); %Eosinophils 7.6 % (0.0-10.0); %Lymphocytes 21.4 % (21.0-51.0); %Monocytes 13.3 % (0.0-10.0); %Neutrophils 56.4 % (42.0-75.0); Hematocrit 32.6 % (42.0-52.0); Hemoglobin 10.5 g/dL (14.0-18.0); Mean Corpuscular HGB CONC 32.2 g/dL (32.0-36.0); Mean Corpuscular Hemoglobin 34.1 pg (27.0-31.0); Mean Corpuscular Volume 105.8 fl (78.0-98.0); Mean Platelet Volume 10.6 fL (7.4-10.4); Platelet Count 104 10x3/uL (130-400); RBC Distribution Width 19.3 % (11.5-14.5); Red Blood Cell (RBC) Count 3.08 mill/uL (4.70-6.10); White Blood Cell (WBC) Count 6.5 10x3/uL (4.8-10.8)
[2023-06-22 04:41] LABS: INR-International Normal Ratio 2.4; Prothrombin Time 27.2 sec (12.0-14.7)
[2023-06-22 04:58] LABS: ALT (SGPT) 26 U/L (8-55); AST (SGOT) 32 U/L (5-34); Albumin 3.9 g/dL (3.4-4.8); Alkaline Phosphatase 85 U/L (40-110); Anion Gap 10 mmol/L (10-20); BUN (Urea Nitrogen) 18 mg/dL (8.4-25.7); Bilirubin, Total 2.3 mg/dL (0.2-1.2); Calc. Creatinine Clearance 103 mL/min (70-130); Calcium 8.9 mg/dL (7.8-10.44); Carbon Dioxide 24 mmol/L (23-31); Chloride 113 mmol/L (98-107); Estimated GFR 90; Globulin 1.8 g/dL (2.4-3.5); Glucose 154 mg/dL (83-110); Potassium 3.6 mmol/L (3.5-5.1); Protein, Total 5.7 g/dL (5.8-8.1); Sodium 143 mmol/L (136-145)
[2023-06-22] MEDS: Piperacillin/Tazobactam 3.375 GM in Sodium Chloride 0.9% 100 ML IVPB SCH (05:40)
[2023-06-22] MEDS: Octreotide Acetate 100 MCG/ML VIAL SC SCH (05:40)
[2023-06-22] MEDS: Famotidine/PF 20 mg/2ml Vial SLOW IVP SCH ×2 (09:38→21:02)
[2023-06-22] MEDS: Sodium Bicarbonate Tab 325 MG TAB PER TUBE SCH ×3 (09:40→21:03)
[2023-06-22] MEDS: predniSONE 20 MG TAB PO SCH (09:41)
[2023-06-22] MEDS: Rifaximin 200 MG TAB PER TUBE SCH ×2 (09:41→21:02)
[2023-06-22] MEDS: Spironolactone 25 MG TAB PER TUBE SCH (09:41)
[2023-06-22] MEDS: Topiramate 100 MG TAB PO SCH ×2 (09:42→21:03)
[2023-06-22] MEDS: Primidone 250 MG TAB PO SCH ×2 (09:42→21:02)
[2023-06-22] MEDS: Famotidine 20 MG TAB PO SCH ×2 (09:42→19:43)
[2023-06-22] MEDS: Heparin 5,000 UNITS/ML VIAL SC SCH ×2 (10:02→21:01)
[2023-06-22] MEDS: Simvastatin 10 MG TAB PO SCH (21:03)
[2023-06-23] MEDS: Famotidine 20 MG TAB PO SCH (09:45)
[2023-06-23] MEDS: Rifaximin 200 MG TAB PER TUBE SCH (09:57)
[2023-06-23] MEDS: Primidone 250 MG TAB PO SCH (09:58)
[2023-06-23] MEDS: Topiramate 100 MG TAB PO SCH (09:58)
[2023-06-23] MEDS: Sodium Bicarbonate Tab 325 MG TAB PER TUBE SCH ×2 (09:58→19:15)
[2023-06-23] MEDS: Spironolactone 25 MG TAB PER TUBE SCH (09:58)
[2023-06-23] MEDS: predniSONE 20 MG TAB PO SCH (09:58)
[2023-06-23] MEDS: Heparin 5,000 UNITS/ML VIAL SC SCH (09:59)
[2023-06-23] MEDS: Famotidine/PF 20 mg/2ml Vial SLOW IVP SCH (09:59)
[2023-06-23 15:33] VITALS: BP 111/56; TEMP 98.3
== END 2023-06-23 21:39 | disposition hospice, home (50) | DRG 441 ==
LOC: ERS 17:58 → 2NO 20:53
PROVIDERS: ADMIT Student in an Organized Health Care Education/Training Program; ATTEND Hospitalist
PROC: 30233J1 Transfusion of Nonautologous Serum Albumin into Peripheral Vein, Percutaneous Approach (ICD-10-PCS; 2023-06-15)
PROC: 0W9G3ZZ Drainage of Peritoneal Cavity, Percutaneous Approach (ICD-10-PCS; principal; 2023-06-16)
PROC: 0W9G3ZZ Drainage of Peritoneal Cavity, Percutaneous Approach (ICD-10-PCS; 2023-06-20)
DX: K76.82 Hepatic encephalopathy (principal); G93.41 Metabolic encephalopathy; K76.7 Hepatorenal syndrome; T83.511A Infection and inflammatory reaction due to indwelling urethral catheter, initial encounter; N17.9 Acute kidney failure, unspecified; N41.2 Abscess of prostate; R18.8 Other ascites; E51.2 Wernicke's encephalopathy; E87.21 Acute metabolic acidosis; N39.0 Urinary tract infection, site not specified; E22.2 Syndrome of inappropriate secretion of antidiuretic hormone; R74.01 Elevation of levels of liver transaminase levels; E88.09 Other disorders of plasma-protein metabolism, not elsewhere classified; Z51.5 Encounter for palliative care; D69.6 Thrombocytopenia, unspecified; N18.9 Chronic kidney disease, unspecified; G47.00 Insomnia, unspecified; K21.9 Gastro-esophageal reflux disease without esophagitis; K74.60 Unspecified cirrhosis of liver; E78.5 Hyperlipidemia, unspecified; R25.1 Tremor, unspecified; J30.2 Other seasonal allergic rhinitis; I12.9 Hypertensive chronic kidney disease with stage 1 through stage 4 chronic kidney disease, or unspecified chronic kidney disease; E87.6 Hypokalemia; K75.4 Autoimmune hepatitis; Z98.890 Other specified postprocedural states; Z79.01 Long term (current) use of anticoagulants; Z79.899 Other long term (current) drug therapy; Z79.51 Long term (current) use of inhaled steroids; Z79.82 Long term (current) use of aspirin; Z87.891 Personal history of nicotine dependence; Y84.6 Urinary catheterization as the cause of abnormal reaction of the patient, or of later complication, without mention of misadventure at the time of the procedure
CPT/HCPCS: 36415; 36416; 49083; 70450; 74018; 76705; 80048; 80053; 81001; 81256; 82042; 82103; 82105; 82140; 82390; 82525; 82550; 82570; 82728; 83516; 83540; 83550; 83605; 83735; 83930; 83935; 84100; 84156; 84157; 84300; 84484; 85025; 85060; 85610; 86015; 86038; 86225; 86235; 86704; 86705; 86803; 87040; 87070; 87086; 87205; 87340; 89051; 93005; 93010; 96365; J0696; J1644; J2354; J2543; J3480; J3490; J7070; J7512; P9047; S0028